=== PATIENT | male | born 1945 | race American Indian/Alaskan Native ===

== ENCOUNTER → 2021-02-18 09:02 | Outpatient (CLI) | payer OTHER ==
[~2021-02-18] VITALS: Ht 177.8 cm; Wt 76.7 kg
[~2021-02-18 09:02] MED LIST: AMIODARONE HCL200 MG PO; CARBATROL 200200 MG PO; COLACE100 MG PO; GLUCOPHAGE500 MG PO; KLONOPIN1 MG PO; LIPITOR20 MG PO; LISINOPRIL10 MG PO; LOPRESSOR25 MG PO; METHOCARBAMOL500 MG PO; PERCOCET 5-3251 TAB PO; PLAVIX75 MG PO; PROBIOTIC BLEN1 EACH; TRAZODONE HCL100 MG PO
[2021-02-18 15:34] VITALS: Ht 177.8 cm; Wt 76.7 kg
== END | disposition home or self-care (01) ==
LOC: D.FANS 02-11 08:45
PROVIDERS: ATTEND Internal Medicine Interventional Cardiology
DX: E13.3 Other specified diabetes mellitus with ophthalmic complications (principal)